=== PATIENT | male | born 1940 | race Caucasian/White ===

== ENCOUNTER 2021-03-23 21:03 | Emergency (ER) | payer MEDICARE ==
[2021-03-23 22:28] VITALS: BP 158/80
[2021-03-23] MEDS ORDERED: ZESTRIL5 M1 PO (22:38)
[2021-03-23] MEDS ORDERED: FLUTICASON0.05 MG/Ac NS (22:39)
[2021-03-23] MEDS ORDERED: CARVEDILOL3.125 MG PO (22:39)
[2021-03-23] MEDS ORDERED: ATORVASTATIN CA20 MG PO (22:39)
== END 2021-03-23 22:28 | disposition home or self-care (01) ==
LOC: ED 21:03
DX: S51.812A Laceration without foreign body of left forearm, initial encounter (principal); R58 Hemorrhage, not elsewhere classified; Z87.891 Personal history of nicotine dependence; Z79.01 Long term (current) use of anticoagulants; W54.8XXA Other contact with dog, initial encounter

== ENCOUNTER 2022-05-07 09:56 | Outpatient (RCR) | payer MEDICARE ==
[~2022-05-07 09:56] MED LIST: ATORVASTATIN CA20 MG PO; CARVEDILOL3.125 MG PO; FLUTICASON0.05 MG/Ac NS; ZESTRIL5 M1 PO
== END 2022-05-09 | disposition home or self-care (01) ==
LOC: PT
DX: S82.52XA Displaced fracture of medial malleolus of left tibia, initial encounter for closed fracture (principal)

== ENCOUNTER 2022-07-16 08:58 | Outpatient (RCR) | payer MEDICARE | END 2022-08-08 | disposition home or self-care (01) | LOC: CARDREHAB | DX: Z48.812 Encounter for surgical aftercare following surgery on the circulatory system (principal); Z95.2 Presence of prosthetic heart valve ==

== ENCOUNTER 2022-08-13 10:05 | Emergency (ER) | payer MEDICARE ==
[2022-08-13 10:27] LABS: BASO # 0.04 K/mm3 (0.02-0.10); EOS # 0.23 K/mm3 (0.04-0.40); HEMOGLOBIN 12.8 g/dL (13.5-18.0); LYMPH# 1.37 K/mm3 (1.50-4.00); MEAN CELL VOLUME 94 fl (78-100); MEAN CORPUSCULAR HEMOGLOBIN 30 pg (27-31); MEAN CORPUSCULAR HGB CONC 32 g/dL (33-37); MEAN PLATELET VOLUME 10.2 fl (7.4-10.4); MONO # 0.66 K/mm3 (0.20-0.80); NEU # 3.42 K/mm3 (1.40-6.50); PLATELET COUNT 208 K/mm3 (130-400); RED BLOOD COUNT 4.26 M/mm3 (4.20-5.60); RED CELL DISTRIBUTION WIDTH 12.9 % (11.5-14.5); WHITE BLOOD COUNT 5.7 K/mm3 (4.8-10.8)
[2022-08-13 10:39] LABS: ALBUMIN 3.8 g/dL (3.4-4.8); POTASSIUM 4.5 mmol/L (3.5-5.1); SODIUM 143 mmol/L (136-145)
[2022-08-13 10:40] LABS: CALCIUM 9.6 mg/dL (8.3-10.5)
[2022-08-13 10:42] LABS: GLUCOSE 86 mg/dL (75-110); TOTAL PROTEIN 6.8 g/dL (6.2-8.1)
[2022-08-13 10:43] LABS: CARBON DIOXIDE 22 mmol/L (23-31); PROTHROMBIN TIME 9.8 SECONDS (9.0-12.0); TOTAL BILIRUBIN 0.4 mg/dL (0.2-1.2)
[2022-08-13 10:47] LABS: AST-SGOT 16 U/L (5-34)
[2022-08-13 10:48] LABS: ALT/SGPT 8 U/L (0-55)
[2022-08-13 10:56] LABS: TROPONIN-I < 0.030 ng/mL (<0.030)
[2022-08-13] MEDS ORDERED: ASPIRIN E.C. 8181 MG (11:20)
[2022-08-13] MEDS ORDERED: ATORVASTATIN CA40 MG PO (11:21)
[2022-08-13] MEDS ORDERED: ZESTRIL5 M1 PO (11:21)
[2022-08-13] MEDS ORDERED: KEPPRA750 M1 PO (11:21)
[2022-08-13] MEDS ORDERED: MULTI-VITAMIN1 EACH PO (11:22)
[2022-08-13 13:30] VITALS: BP 128/67
== END 2022-08-13 13:34 | disposition home or self-care (01) ==
LOC: ED 10:05
PROVIDERS: Nurse Practitioner
DX: R07.89 Other chest pain (principal); R00.1 Bradycardia, unspecified; Z87.891 Personal history of nicotine dependence; Z20.822 Contact with and (suspected) exposure to COVID-19; Z28.310 Unvaccinated for COVID-19

== ENCOUNTER 2023-10-08 08:58 | Outpatient (RCR) | payer MEDICARE ==
[~2023-10-08 08:58] MED LIST changes: +ASPIRIN E.C. 8181 MG; +ATORVASTATIN CA40 MG PO; +KEPPRA750 M1 PO; +MULTI-VITAMIN1 EACH PO
== END 2023-10-09 ==
LOC: PT
DX: Z96.651 Presence of right artificial knee joint (principal)

== ENCOUNTER 2023-10-10 08:31 | Outpatient (RCR) | payer MEDICARE | END 2023-11-07 | disposition home or self-care (01) | LOC: PT | DX: Z96.651 Presence of right artificial knee joint (principal) ==

== ENCOUNTER 2024-04-10 08:00 | Outpatient (RCR) | payer MEDICARE | END 2024-05-09 | disposition home or self-care (01) | LOC: PT | DX: M54.51 Vertebrogenic low back pain (principal) ==

== ENCOUNTER 2024-05-13 09:15 | Outpatient (RCR) | payer MEDICARE | END 2024-06-08 | disposition home or self-care (01) | LOC: PT | DX: M54.51 Vertebrogenic low back pain (principal) ==